=== PATIENT | female | born 1965 | race Caucasian/White ===

== ENCOUNTER 2017-09-21 03:49 | Emergency (ER) | payer OTHER ==
[~2017-09-21] VITALS: Ht 172.7 cm; Wt 68.0 kg
[~2017-09-21 03:49] MED LIST: LORA-655 PO; NAPR550T PO
[2017-09-21 03:50] VITALS: BP 158/96
== END 2017-09-21 06:21 | disposition left against medical advice (07) ==
LOC: EDBD 03:49 → ER 03:49
DX: R51 Headache (principal); R11.2 Nausea with vomiting, unspecified; Z53.21 Procedure and treatment not carried out due to patient leaving prior to being seen by health care provider